=== PATIENT | male | born 1975 | race African-American/Black ===

== ENCOUNTER 2022-05-24 00:16 | Emergency (ER) | payer SELFPAY ==
[~2022-05-24] VITALS: Ht 185.4 cm; Wt 99.8 kg
[2022-05-24] MEDS ORDERED: IV NORMAL SALINE 500 ML BAG IV ONE (01:15)
[2022-05-24] MEDS ORDERED: LIDOCAINE 2% (GLYDO= UROJET) 10 ML JELLY MM ONE ×2 (01:15→03:13)
[2022-05-24] MEDS ORDERED: NALOXONE 2 MG/2 ML SYRINGE ONE ×2 (01:17→01:46)
[2022-05-24] MEDS ORDERED: NALOXONE HCL 0.4 MG/ML AMPUL IV ONE (01:45)
[2022-05-24] MEDS ORDERED: MISCELLANEOUS MED XX ONE (01:45)
[2022-05-24 01:47] LABS: MEAN CORPUSCULAR HEMOGLOBIN 35.4 uug (23.8-33.4); MEAN CORPUSCULAR VOLUME 102.2 fL (73.0-96.2); PLATELET COUNT (AUTO) 323 K/uL (152-348)
--- NOTE | 2022-05-24 01:54 | NUR ---
Followed miscellaneous ordered placed by Dr. Crawford. Initiated Narcan gtt @50ml/h (2mg Narcan/250ml NS bag).
[2022-05-24 02:03] LABS: ALANINE AMINOTRANSFERASE 115 U/L (16-63); ALKALINE PHOSPHATASE 114 U/L (50-136); ASPARTATE AMINOTRANSFERASE 130 U/L (15-37); BILIRUBIN,DIRECT 0.2 mg/dL (0.0-0.2); BILIRUBIN,TOTAL 0.6 mg/dL (0.2-1.0); CARBON DIOXIDE 28 mmol/L (21-32); CHLORIDE 103 mmol/L (98-107); CREATININE 1.1 mg/dL (0.6-1.3); GLUCOSE 220 mg/dL (74-106); POTASSIUM 3.8 mmol/L (3.5-5.1); TOTAL PROTEIN, SERUM 6.4 g/dL (6.4-8.2); UREA NITROGEN, BLOOD 23 mg/dL (7-18)
[2022-05-24 02:08] LABS: THYROID STIMULATING HORMONE 0.051 mIU/mL (0.358-3.740)
[2022-05-24 02:10] LABS: ACETAMINOPHEN < 10.0 ug/mL (10-30)
[2022-05-24 02:11] LABS: ETHANOL 282 MG/DL (0-0)
--- NOTE | 2022-05-24 04:05 | NUR ---
Stopped/Discontinued Narcan infusion per Dr. Crawford verbal order.
[2022-05-24 04:12] LABS: *BILIRUBIN,URIN NEGATIVE (NEGATIVE); *BLOOD, URINE NEGATIVE (NEGATIVE); *CLARITY,URINE CLEAR (CLEAR); *COLOR,URINE YELLOW (YELLOW); *KETONES,URINE NEGATIVE (NEGATIVE); *UROBILINOGEN,URINE 0.2 E.U./dl (NORMAL); LEUKOCYTE ESTERASE ,URINE NEGATIVE (NEGATIVE); NITRITE, URINE NEGATIVE (NEGATIVE); UGLUCOSE NEGATIVE (NEGATIVE)
[2022-05-24 04:25] LABS: *AMPHETAMINE, URINE NEGATIVE (NEGATIVE); *CANNABINOID, URINE NEGATIVE (NEGATIVE); *COCCAINE, URINE NEGATIVE (NEGATIVE); *OPIATE, URINE NEGATIVE (NEGATIVE); *PHENCYCLIDINE SCREEN,URINE NEGATIVE (NEGATIVE)
--- NOTE | 2022-05-24 08:06 | NUR ---
PT WAS RE-EVALUATED BY DR WHEAT.
[2022-05-24] MEDS ORDERED: NALO4SPR BNOSTRILS (08:10)
--- NOTE | 2022-05-24 09:02 | NUR ---
Social Work consult was requested for a patient in the emergency room for homeless and substance abuse resources. Patient is a 46-year-old male. Patient is alert and oriented X3. Patient presents with anxious mood and congruent affect. Patient appears lethargic. Patient states he does not have a primary contact. Patient states he has been homeless for over 10 years, and SW provided the patient with homeless resources for [facility] [address] [place] [address] ([phone]) and [facility] [address] [facility] [address] ([phone]). SW gave resources for [facility] [address] [place] [id number]. Patient signed the homeless waiver form and SW placed a copy in the patients chart. Patient states he has a history of alcohol abuse. Patients alcohol level is 282 and the toxicology report was positive for benzodiazepines. SW provided the patient with substance abuse resources for [address] [address] ([phone]), [facility] [address] [facility] [address] ([phone]), and [address] [address] ([phone]). Patient appears motivated for treatment and states he wants to go to [facility] at discharge. SW provided emotional support, validation, and coping strategies. Patient denies a history of psychiatric diagnosis. Patient denies suicidal or homicidal ideation. Patient requested a TAP card at discharge and nurse, Jeanmarie, provided directions to [address] [address] ([phone]).
--- NOTE | 2022-05-24 09:05 | NUR ---
PT WAS D/C'd TO HOME. D/C INSTRUCTIONS GIVEN TO THE PT BY DR WHEAT AND BY GRANULAR OPERATOR SAMIR.
[2022-05-24 09:07] VITALS: BP 143/89
== END 2022-05-24 09:08 | disposition home or self-care (01) ==
LOC: ER 00:20
DX: T40.411A Poisoning by fentanyl or fentanyl analogs, accidental (unintentional), initial encounter (principal); T51.0X1A Toxic effect of ethanol, accidental (unintentional), initial encounter; R40.4 Transient alteration of awareness; F10.121 Alcohol abuse with intoxication delirium; F19.10 Other psychoactive substance abuse, uncomplicated; Y92.89 Other specified places as the place of occurrence of the external cause; R09.02 Hypoxemia; J81.1 Chronic pulmonary edema; R79.1 Abnormal coagulation profile; Z59.00 Homelessness unspecified; R94.31 Abnormal electrocardiogram [ECG] [EKG]
CPT/HCPCS: 87081; 80076; 80048; 81003; 84443; 85025; 85379; 87426; 84484 ×2; 36415; 93005; 71045; 70450; 72125; 99285; 96361; 96365; 96366; 80299; 80320; 80307; J2310 ×2; J7040; A4663; C1758; G0480